=== PATIENT | male | born 1935 | race Caucasian/White ===

== ENCOUNTER 2018-06-19 18:16 | Emergency (ER) | payer MEDICARE, OTHER, SELFPAY ==
[2018-06-19 18:18] VITALS: BP 94/73; PULSE 113; RESP 30; TEMP 36.1; O2SAT 53
--- NOTE | 2018-06-19 18:22 | CT_ITS ---
STUDY: CT ABDOMEN AND PELVIS WITH CONTRAST REASON FOR EXAM: Male, 82 years old. Hypotension and altered level of consciousness. This RADIATION DOSAGE (If Supplied By Facility): CTDIvol = ( 19.86 ) mGy, DLP = ( 1089.20 ) mGycm TECHNIQUE: Transaxial images were obtained from the dome of the diaphragm to the symphysis pubis without oral contrast. 100 ml of Isovue 300 contrast was administered. Sagittal and coronal images were reconstructed. Individualized dose optimization techniques were used for this CT. COMPARISON: Chest CT exam of the same day. FINDINGS: Mild to moderate calcific plaque of the aorta. There is less than the usual intense contrast opacification of the aorta suggesting proximal flow obstruction either secondary to the patient's demonstrated thoracic dissection or reduced cardiac output/possible cardiac tablet not. Large pericardial effusion noted. Normal liver. Normal gallbladder and extrahepatic biliary system. Normal spleen. 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 Normal pancreas. Normal bilateral adrenal glands. Bilateral renal atrophy without hydronephrosis. Fluid-filled stomach. Normal small intestine. Minimal diverticulosis without evidence of acute diverticulitis. There is non-visualization of the appendix. Normal inferior vena cava. Normal retroperitoneum. Nondistended urinary bladder. Normal abdominal wall. There are diffuse degenerative changes of the visualized lumbar spine with demineralized osseous structures. CT/Abdomen/Pelvis W IV Cont ONLY IMPRESSION: Poor aortic perfusion. Intimal dissection does not appear to extend into the abdominal aorta. Mild to moderate calcified plaque without aneurysm. Negative for acute of bowel related findings. Negative for evidence of bowel obstruction, perforation or inflammatory bowel findings. Mild bilateral renal atrophy. 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 Electronically Signed: Sharlene Zaman MD at 19:31 EST , Service support ,
--- NOTE | 2018-06-19 18:30 | CT_ITS ---
STUDY: CT CHEST WITH CONTRAST REASON FOR EXAM: Male, 82 years old. Hypotension and altered level of consciousness. Evaluation for possible aortic aneurysm or dissection. RADIATION DOSAGE (If Supplied By Facility): CTDIvol = ( 19.86 ) mGy, DLP = ( 1089.20 ) mGycm TECHNIQUE: Transaxial imaging was performed following intravenous administration of 100 ml of Isovue 300 contrast material. Multiplanar coronal and sagittal images were reformatted. Chest radiograph of June 19, 2018 is Individualized dose optimization techniques were used for this CT. COMPARISON: None. FINDINGS: The exam is positive for an intimal dissection of the aorta that begins at the level of the aortic valve (Miguelito type A) extends the length of the aorta with contrast in both the true and false lumen. There is swirling and poor mixing of the contrast in the aorta past the arch and extending into the upper abdomen. The false lumen as mixed opacified and nonopacified blood. The dissection extends to the upper abdomen ending above the celiac artery. The dissection appears to extend into the innominate artery and probably into the subclavian artery but not into the right carotid artery. The dissection appears to extend into the left subclavian artery but not into the left common carotid artery. The diameter of the prince ascending aorta is 4.5 cm just above the valve. The mid arch diameter is 3.2 cm. The descending diameter is 2.5 cm. The heart is small. There is a substantial pericardial effusion. The lung arroyo are generally hyperexpanded with emphysematous changes. Negative for major consolidation. Negative for pleural effusion. Normal mediastinum. Normal hilar regions. Normal enhanced pulmonary arteries. There are multi-level degenerative changes of the thoracic spine. Bilateral mild renal atrophy. CT/Chest WITH Contrast IMPRESSION: Small heart surrounded by a substantial pericardial effusion. Question cardiac tamponade. Contrast perfusion of the aorta appears diminished. 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 Very poor mixing of contrasted and noncontrasted blood. The intimal dissection probably extends to the upper abdomen. The dissection appears to extend into the innominate artery and right subclavian artery. There is extension into the left subclavian artery. There does not appear to be extension into the carotid arteries. The diameter of the ascending aorta is 4.5 cm. Arch diameter is 3.2 cm. Descending diameter is 2.5 cm. A generalized changes of COPD with hyperexpansion and bullous changes. Otherwise negative for major consolidation, focal atelectasis or a pleural effusion. Bilateral mild renal atrophy. N.B. : The above information has been verbally conveyed by Sharlene Zaman MD to Dr. Waylon MD, on 06/19/2018 19:48:22 (ET). Electronically Signed: Sharlene Zaman MD at 19:20 EST , Service support ,
--- NOTE | 2018-06-19 18:35 | RAD_ITS ---
STUDY: X-RAY CHEST REASON FOR EXAM: Male, 82 years old. Chest pain TECHNIQUE: Single AP portable view of the chest. COMPARISON: None. FINDINGS: Lung arroyo are generally hyperexpanded with changes of COPD without major consolidation, pleural effusion or focal atelectasis. There is no demonstrated pleural abnormality. Normal size heart. Normal mediastinum and rosas. Normal visualized pulmonary arteries. Elongated and ectatic thoracic aorta. There are diffuse degenerative changes of the visualized thoracic spine. Normal visualized ribs, clavicles, and shoulders. There is no demonstrated abnormality of the visualized soft tissue structures of the upper abdomen. RAD/Chest 1 View (Portable) IMPRESSION: Negative for major consolidation, focal atelectasis or a substantial pleural effusion. Generalized changes of COPD. Ectatic thoracic aorta. Electronically Signed: Sharlene Zaman MD at 19:33 EST , Service support ,
[2018-06-19 18:36] VITALS: BMI 24.7
[2018-06-19 18:37] VITALS: BP 102/82; PULSE 111; RESP 29; O2SAT 87
[2018-06-19] MEDS: 0.9% Normal Saline 1,000 ML 1000 ML IV (18:40)
[2018-06-19] MEDS: Ondansetron 4 MG/2 ML Vial IV (18:41)
[2018-06-19 18:44] VITALS: BP 94/73; PULSE 113; RESP 30; O2SAT 53
[2018-06-19 18:50] LABS: Bedside Glucose 176 mg/dL (70-110)
[2018-06-19] MEDS: fentaNYL 100 MCG/2 ML Ampul 20 MCG IV (18:51)
[2018-06-19 19:11] LABS: Absolute Lymphocyte Count 5.51 X10^3/ul (0.83-4.51); Absolute Neutrophil Count 3.6 X10^3/uL (2.0-7.7); Basophil# 0.05 X10^3/uL; Basophil% 0.5 % (0-1); Differential Indicated SCAN CRITERIA MET; Eosinophil# 0.61 X10^3/uL; Eosinophils% 5.9 % (0-5); Hematocrit 37.6 % (40-54); Hemoglobin 12.3 g/dl (13.0-16.5); Lymphocyte # 5.51 X10^3/ul (4.0); Lymphocyte % 53.5 % (19-41); Mean Corp Hgb Conc 32.7 g/gl (32-36); Mean Corpuscular Hgb 31.5 pg (27.0-32.0); Mean Corpuscular Volume 96.4 fL (80-94); Mean Platelet Vol. 10.4 fl (6.2-12.0); Monocyte# 0.51 X10^3/uL; Neutrophil # 3.59 X10^3/uL (2.7-7.7); Neutrophil % 34.8 % (47-70); POSITIVE COUNT NO; POSITIVE DIFFERENTIAL YES; POSITIVE MORPHOLOGY NO; Platelet Count 197 K/mm3 (150-450); RBC Distribution Width SD 45.6 fl (35.1-43.9); White Blood Count 10.3 K/mm3 (4.4-11.0)
--- NOTE | 2018-06-19 19:13 | EKG12_ITS ---
Test Reason : SYNCOPE Blood Pressure : / mmHG Vent. Rate : 112 BPM Atrial Rate : 112 BPM P-R Int : 142 ms QRS Dur : 074 ms QT Int : 318 ms P-R-T Axes : 073 075 078 degrees QTc Int : 434 ms Poor data quality, interpretation may be adversely affected Sinus tachycardia Confirmed by RAFAEL WORLEY, TRUE ([id number]), associate entertainment editor YECENIA DESAI ([id number] on 06/24/2018 1:09:05 PM Referred By: QING Confirmed By:TRUE HALL MD
[2018-06-19 19:18] LABS: AST(SGOT) 85 U/L (15-37); Alanine Aminotransfer ALT/SGPT 61 U/L (16-61); Alkaline Phosphatase 71 U/L (45-117); Anion Gap 12 (5-15); BUN 16 mg/dL (7-18); BUN/Creat Ratio 9.8 RATIO (10-20); Bilirubin, Direct 0.15 mg/dL (0.00-0.30); Calcium,Total 7.9 mg/dL (8.5-10.1); Chloride 106 mmol/L (98-107); Creatinine, Serum 1.64 mg/dL (0.70-1.30); EST Glomerular Filtration Rate 43 mL/min (>60); Est Glom Filt Rate - Afr Amer 52 mL/min (>60); Globulin 2.9 g/dL (2.2-4.2); Glucose 217 mg/dL (74-106); Lipase 159 U/L (73-393); Potassium 3.8 mmol/L (3.5-5.1); Protein, Total 5.9 g/dL (6.4-8.2); Sodium Level 141 mmol/L (136-145)
[2018-06-19 19:19] VITALS: PULSE 99; RESP 17; TEMP 36.1; O2SAT 85
--- NOTE | 2018-06-19 19:21 | ED.VISSUMM ---
- ER Visit Summary Date of Service: 06/19/18 Chief Complaint: Acute confusion and low blood pressure History of Present Illness: The patient is a 82 M your prior CVA, hypertension, hypothyroidism and COPD. Due to the patient's strokes he is anticoagulated on Plavix. According to his family he had a sudden onset of mental status change about half an hour prior to arrival. Squad brought him in was concerned for possible stroke. Patient was a limited informant. He was having epigastric abdominal pain. He denies any recent illness. Denies any hematemesis. He denies any recent headache. Physical Examination: Older male in acute distress. Initial blood pressure 94/73. Temperature 97. Heart rate 113. HEENT exam unremarkable. Normal speech. Neck nontender. No lymphadenopathy. Lungs clear to auscultation. Heart regular rhythm tachycardic rate about 110 no murmur. Abdomen soft epigastric tenderness exquisite. Nondistended normal bowel sounds no peritoneal signs no hernias or masses. No signs of obstruction. No pulsatile mass. Right upper and right lower quadrants are unremarkable. Extremities moving all 4. Normal manager solar strength equal symmetrical. Dorsi plantar flexion intact. Neurologically he does follow commands. Answers very limited questions. Test Results: CBC White count of 10. Hemoglobin 12. No bands. Chest x-ray no acute process as read by myself and the radiologist. CTA chest and abdomen shows a proximal aorta type a dissection with pericardial fluid and dissection extends down to at least the diaphragm. Somewhat limited due to his hypotension and where the CAT scan dye is currently. EKG sinus tachycardia rate of 112 with PVCs. No acute ischemia. Emergency Department Course and Treatment: On initial presentation is very concerned that this patient was severely ill. Differential included an aortic aneurysm versus dissection versus other etiologies that can cause his acute hypotension. Clinically did not look septic. Treatment Plan: Patient was treated with IV fluids due to his hypotension. He was not given anything for his heart rate due to the hypotension and concerned that could get worse. He was given fentanyl for his pain. With the patient's diagnosis of a proximal aortic dissection with concerns for early signs of tamponade on I had orestes conversations with the family who understand how critically ill he is. I also spoke to the transfer line. And cardiothoracic service at the [facility] who accepted him via [employer].. 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 It may contain incorrect words, spelling, and punctuation that were not noted in review of the chart prior to signing ED Disposition - Plan for ED Patient: Disposition: [facility] Chief Complaint: Alt LOC Referrals: Montana Hannah MD [Primary Care Provider] -
--- NOTE | 2018-06-19 19:22 | ED.RN ---
pt care transferred to [place] flight crew. marjorie crowe rn
--- NOTE | 2018-06-19 19:29 | ED.DCSUM_ITS ---
- ER Visit Summary Date of Service: 06/19/18 Chief Complaint: Acute confusion and low blood pressure History of Present Illness: The patient is a 82 M your prior CVA, hypertension, hypothyroidism and COPD. Due to the patient's strokes he is anticoagulated on Plavix. According to his family he had a sudden onset of mental status change about half an hour prior to arrival. Squad brought him in was concerned for possible stroke. Patient was a limited informant. He was having epigastric abdominal pain. He denies any recent illness. Denies any hematemesis. He denies any recent headache. Physical Examination: Older male in acute distress. Initial blood pressure 94/73. Temperature 97. Heart rate 113. HEENT exam unremarkable. Normal speech. Neck nontender. No lymphadenopathy. Lungs clear to auscultation. Heart regular rhythm tachycardic rate about 110 no murmur. Abdomen soft epigastric tenderness exquisite. Nondistended normal bowel sounds no peritoneal signs no hernias or masses. No signs of obstruction. No pulsatile mass. Right upper and right lower quadrants are unremarkable. Extremities moving all 4. Normal procedure analyst strength equal symmetrical. Dorsi plantar flexion intact. Neurologically he does follow commands. Answers very limited questions. Test Results: CBC White count of 10. Hemoglobin 12. No bands. Chest x-ray no acute process as read by myself and the radiologist. CTA chest and abdomen shows a proximal aorta type a dissection with pericardial fluid and dissection extends down to at least the diaphragm. Somewhat limited due to his hypotension and where the CAT scan dye is currently. EKG sinus tachycardia rate of 112 with PVCs. No acute ischemia. Emergency Department Course and Treatment: On initial presentation is very concerned that this patient was severely ill. Differential included an aortic aneurysm versus dissection versus other etiologies that can cause his acute hypotension. Clinically did not look septic. Treatment Plan: Patient was treated with IV fluids due to his hypotension. He was not given anything for his heart rate due to the hypotension and concerned that could get worse. He was given fentanyl for his pain. With the patient's diagnosis of a proximal aortic dissection with concerns for early signs of tamponade on I had orestes conversations with the family who understand how critically ill he is. I also spoke to the transfer line. And cardiothoracic service at the [facility] who accepted him via [employer].. 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 It may contain incorrect words, spelling, and punctuation that were not noted in review of the chart prior to signing ED Disposition - Plan for ED Patient: Disposition: [facility] Chief Complaint: Alt LOC Referrals: Montana Hannah MD [Primary Care Provider] -
[2018-06-19 19:31] LABS: Platelet Estimate ADEQUATE (ADEQ); Red Cell Morphology NORM C+C NORMAL (NORM C&C)
[2018-06-19 19:32] LABS: Reactive Lymphocyte 1+
[2018-06-20 14:45] LABS: Bedside Glucose 72 mg/dL (70-110)
== END 2018-06-19 19:19 | disposition short-term general hospital (02) ==
LOC: ED 18:44
PROVIDERS: Emergency Provider Emergency Medicine; Family Provider Family Medicine; PCP Family Medicine
DX: I71.00 Dissection of unspecified site of aorta (principal); E87.2 Acidosis; I95.9 Hypotension, unspecified; Z79.02 Long term (current) use of antithrombotics/antiplatelets; Z86.73 Personal history of transient ischemic attack (TIA), and cerebral infarction without residual deficits; I10 Essential (primary) hypertension; E03.9 Hypothyroidism, unspecified; J44.9 Chronic obstructive pulmonary disease, unspecified
CPT/HCPCS: 71045; 71260; 74177; 80048; 80076; 82962; 83605; 83690; 84484; 85025; 93005; 96361; 96374; 96375; 99283; J7030; Q9967; A4216; J2405